=== PATIENT | female | born 1990 | race Caucasian/White ===

== ENCOUNTER 2021-12-13 21:07 | Emergency (ER) | payer SELFPAY ==
--- NOTE | 2021-12-13 21:23 | Event Note ---
Date: 12/13/21 EMS documentation not available at time of chart dictation Verbal report received from emergency medical services. Medical screening examination: 31-year-old female brought to the hospital by EMS with an EMS articulated complaint of "she wants to get a ticket back to [facility]." EMS reports that patient is awake, alert, oriented, sober, ambulatory with a steady gait. They report that the patient was evaluated earlier on today at [facility] for nonspecific abdominal pain, and either left AMA, or eloped. Patient is awake, alert, ambulatory with a steady gait, and does not appear to be in any acute distress. Appropriate laboratory studies ordered. Detailed history and physical to be performed by oncoming ER provider
== END 2021-12-14 02:00 | disposition left against medical advice (07) ==
LOC: ED 21:07
DX: R53.1 Weakness (principal); Z53.21 Procedure and treatment not carried out due to patient leaving prior to being seen by health care provider